=== PATIENT | male | born 1955 | race Caucasian/White ===

== ENCOUNTER → 2021-04-21 02:47 | Outpatient (CLI) | payer BC, SELFPAY ==
[2021-04-21 18:24] LABS: SARS-CoV-2 RNA PCR Positive
== END ==
PROVIDERS: PCP Family Medicine; Visit Provider Internal Medicine Gastroenterology
DX: U07.1 COVID-19 (principal)
CPT/HCPCS: C9803; U0003; U0005

== ENCOUNTER 2024-07-07 09:32 | Outpatient (CLI) | payer MEDICARE, SELFPAY ==
--- OUTSIDE RECORDS SUMMARY | 2024-07-07 10:10 | XMS_ITS | Referral Summary ---
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 Name Role Phone Alfa Quintana MD Primary Care Provider [phone] Encounters Date Type Department Care Team Description 06/15/2024 8:15 AM CDT Office Visit [facility] Medical [facility] Cardiology [address] [place] [address] Case Roldan MD Need for lipid screening (Primary Dx); Cerebral infarction, unspecified mechanism (HCC); History of CVA (cerebrovascular accident); Essential hypertension; Mixed hyperlipidemia 06/05/2024 9:00 AM CDT Ancillary Procedure [facility] Cardiology [address] [place] [address] Cerebral infarction, unspecified mechanism (HCC) from Last 3 Months Allergies Active Allergy Reactions Criticality Noted Date Comments Lisinopril Cough Low 06/15/2024 Medications atorvastatin (LIPITOR) 80 mg tablet 05/31/2024 Active clopidogreL (PLAVIX) 75 mg tablet 05/31/2024 Active valsartan (DIOVAN) 160 mg tablet 06/04/2024 Active aspirin 81 mg enteric coated tablet Take 1 tablet (81 mg total) by mouth daily Active Active Problems Problem Noted Date Diagnosed Date History of CVA (cerebrovascular accident) 2024 Essential hypertension 06/15/2024 Mixed hyperlipidemia 06/15/2024 Social History Tobacco Use Types Packs/Day Years Used Date Smoking Tobacco: Never Tobacco Cessation:Counseling Given: Not Answered Sex and Gender Information Value Date Recorded Sex Assigned at Not on file Legal Sex Male 10:57 AM CDT Gender Identity Not on file Sexual Orientation Not on file Last Filed Vital Signs Vital Sign Reading Time Taken Comments Blood Pressure 122/68 06/15/2024 8:11 AM CDT Pulse 73 06/15/2024 8:11 AM CDT Temperature - - Respiratory Rate - - Oxygen Saturation 99% 06/15/2024 8:11 AM CDT Inhaled Oxygen Concentration - - Weight 95.1 kg (209 lb 11.2 oz) 06/15/2024 8:11 AM CDT Height 175.3 cm (5' 9 ) 06/15/2024 8:11 AM CDT Body Mass Index 30.97 06/15/2024 8:11 AM CDT Plan of Treatment Not on file Procedures Procedure Name Priority Date/Time Associated Diagnosis Comments ELECTROCARDIOGRAM REPORT Routine 2:39 PM CDT Cerebral infarction, unspecified mechanism (HCC) History of CVA (cerebrovascular accident) Essential hypertension POCT LIPID PANEL Routine 06/15/2024 8:51 AM CDT Need for lipid screening from Last 3 Months Results * Electrocardiogram Report (06/15/2024 2:39 PM CDT) Case Roldan MD ECG ORDERABLES Kim l Result * POCT lipid panel (06/15/2024 8:51 AM CDT) Cholesterol, POC 120 mg/dL Comment:GLU = 125 HDL, POC 37 mg/dL Triglycerides, POC 73 mg/dL LDL Cholesterol POC 68 mg/dL Chol/HDL Ratio, POC 1.8 Non-HDL Cholesterol, POC 83 mg/dL Cholesterol Total, POC 120 mg/dL Capillary blood 06/15/2024 8 :51 AM CDT us Case Roldan MD POINT OF CARE TEST O RDERABLES Final Result from Last 3 Months Insurance [employer] MEDICARE GOLD Care Teams Baseboard Heating Installer Relationship Specialty Start Date End Date Alfa Quintana MD [id number] [place] [place] [address] PCP - General Family Medicine 06/04/24
--- OUTSIDE RECORDS SUMMARY | 2024-07-07 10:10 | XMS_ITS | Clinical Summary ---
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 Metal Trim Erector Name Role Phone Alfa Quintana MD Primary Care Provider [phone] Allergies Active Allergy Reactions Criticality Noted Date [...] 2024 Essential hypertension 06/15/2024 Mixed hyperlipidemia 06/15/2024 Encounters Date Type Department Care Team Description 06/15/2024 8:15 AM CDT Office Visit [facility]iology [facility] [address] [place] [phone] Case Roldan MD Need for lipid screening (Primary Dx); Cerebral infarction, unspecified mechanism (HCC); History of CVA (cerebrovascular accident); Essential hypertension; Mixed hyperlipidemia 06/05/2024 9:00 AM CDT Ancillary Procedure [facility] Cardiology [address] [facility] [address] [place] [phone] Cerebral infarction, unspecified mechanism (HCC) from Last 3 Months Surgical History Surgery Date Site/Laterality Comments NASAL SEPTUM SURGERY VASECTOMY 03/25/1989 - 03/24/1990 Medical History Medical History Date Comments Arthritis of knee, degenerative Basal cell carcinoma Cerebral infarction (HCC) Family History Medical History Relation Name Comments mental disorder Father Alzheimer's disease Mother Relation Name Status Comments Father Mother Social History Tobacco Use Types Packs/Day Years Used Date Smoking Tobacco: Never Tobacco Cessation:Counseling Given: Not Answered Sex and Gender Information Value Date Recorded Sex Assigned at Not on file Legal Sex Male 10:57 AM CDT Gender Identity Not on file Sexual Orientation Not on file Obstetrics History Last Filed Vital Signs Vital Sign Reading [...] 06/15/2024 8:11 AM CDT Plan of Treatment Health Maintenance Due Date Last Done Comments Colon Cancer Screening-Colonoscopy 1956 Depression Screening 1956 Fall Risk Assessment 1956 Hepatitis C Screening 1956 Prostate Cancer Screening-PSA 1956 Hepatitis B Screening 1974 Pneumococcal vaccine 65+ (1 of 1 - PCV) 2006 Zoster Vaccine (1 of 2) 2006 Well Visit 65+ 2021 Influenza Vaccine (#1) 2023 DTaP/Tdap/Td Vaccine (2 - Td or Tdap) 05/27/202907/2019 Procedures Procedure Name Priority Date/Time Associated Diagnosis Comments ELECTROCARDIOGRAM REPORT Routine 025 2:39 PM CDT Cerebral infarction, unspecified mechanism (HCC) History of CVA (cerebrovascular accident) Essential hypertension POCT LIPID PANEL Routine 06/15/2024 8:51 AM CDT Need for lipid screening from Last 3 Months Results * Electrocardiogram Report (06/15/2024 2:39 PM CDT) us Erikaeer Nick Roldan MD ECG ORDERABLES Kim l Result [...] Months Insurance [employer] MEDICARE GOLD Care Teams Metal Trim Erector Relationship Specialty Start Date End Date Alfa Quintana MD [address] [place] [address] [place] [address] PCP - General Family Medicine 06/04/24
--- NOTE | 2024-07-23 14:18 | P.SLEEP_ITS ---
Sleep Study Date of Study: 07/07/24 Ordering Provider: Alfa Quintana MD Interpreting Physician: Moniak Lui DO Sleep Study Type: Split Polysomnogram Height: 1.75 m Weight: 92.533 kg Body Mass Index: 30.1 Neck Circumference (inches): 16 [place]: 13 Reason for Sleep Study Daytime hypersomnia Sleep History The patient is a 69-year-old male that had a sleep study ordered by his primary care physician for evaluation of sleep apnea. The patient occasionally awakens from sleep short of breath. He rarely awakens at night with coughing, heartburn or belching. He rarely snores and is rarely loud enough that others complain. He occasionally has trouble sleeping when he has a cold. He occasionally wakes up gasping for air throughout the night. The patient occasionally has breathing problems at night observed by himself or others. He rarely sweats excessively at night. He occasionally has heart palpitations or irregular heartbeats during the night. He occasionally falls asleep during the day but never while driving. He rarely experiences loss of muscle tone when extremely emotional. He occasionally has trouble at school or work due to sleepiness. He denies sleep paralysis. He rarely experiences vivid dreamlike scenes upon awakening or falling asleep. He rarely feels afraid of going to sleep. He occasionally has nightmares. He occasionally remembers his dreams. He occasionally has thoughts racing through his mind. He occasionally feels sad or depressed. He frequently has anxiety. He occasionally has muscular tension. He frequently notices parts of his body jerk. He frequently kicks during the night. He occasionally has crawling and aching feelings in his legs but rarely has leg pain during the night. He rarely grinds his teeth during sleep and rarely awakens with morning jaw pain. He is rarely bothered by pain during the day and rarely awakened by pain during the night. He frequently wakes up feeling stiff in the morning. He frequently wakes up with sore or achy muscles. He frequently wakes up with pain in the neck, spine or other joints. He goes to bed at 10:30 p.m. every night. It takes him 1-2 hours to fall asleep. He wakes up 3-4 times throughout the night to urinate and is able to fall back asleep within 30 minutes. He wakes up at 6:30 a.m. every morning. He typically gets 4 hours of sleep per night. He will stay in bed for 30 minutes after waking up in the morning. He currently lives with his . He will occasionally consume caffeinated beverages within 2 hours of bedtime. He denies engaging in physical exercise before bedtime. He denies reading before falling asleep. He will watch television before falling asleep. He will take naps in afternoon or the evening and they are refreshing. He consumes 1 caffeinated soda per day. He denies tobacco use. He will consume 1 Mildred per month. He denies recreational drug use. [facility] Past Medical History Medical History Degenerative arthritis of knee, bilateral Obesity (BMI 30.0-34.9) Basal cell carcinoma Surgical History Surgical History History of nasal septoplasty History of vasectomy (~1989) History of colonoscopy (~10/18/13) Family History Family History Father Family history of mental disorder Mother Family history of Alzheimer's disease Social History Social History Smoking status: Never smoker Alcohol intake: current Alcohol use details: Monthly Substance use type: does not use Living arrangements: with family Occupation/Education: retired Spiritual care concerns: No Medications Home Medications ?Medication ?Instructions ?Recorded ?Confirmed ?Type atorvastatin 80 mg tablet 80 mg PO DAILY #90 tabs 06/22/24 07/13/24 Rx clopidogrel 75 mg tablet 75 mg PO DAILY #90 tabs 06/22/24 07/13/24 Rx amlodipine 5 mg tablet 5 mg PO DAILY #90 tabs 07/13/24 07/13/24 Rx irbesartan 300 1 tablet PO DAILY #90 tabs 07/13/24 07/13/24 Rx mg-hydrochlorothiazide 12.5 mg tablet omega-3 fatty acids 500 mg capsule 500 mg PO DAILY 07/13/24 07/13/24 History Sleep Procedure A full night split study using the Spunkmobile multi-channel system recorded the standard physiologic parameters including EEG, EOG, submentalis EMG, anterior tibialis EMG, EKG, body position, nasal and oral airflow using nasal pressure sensor and thermistor.? Respiratory parameters of chest and abdominal movements were recorded with Respiratory Inductance Plethysmography belts. Oxygen saturation was recorded by pulse oximetry. Video monitoring was also performed. Sleep stages, periodic limb movements, and EEG arousals were scored in 30 second epochs according to the criteria of the AASM Scoring Manual. The Apnea-Hypopnea Index was calculated using [facility] guidelines for definition of hypopnea with 4% O2 desaturations while scoring respiratory events. Sleep Architecture During the diagnostic portion of the study, the total recording time was 199.4 minutes. The total sleep time was 140.5 minutes. Sleep latency was 17.4 minutes.? REM latency was 149.0 minutes. Sleep Efficiency was 70.4%. The patient had 17 awakenings for an awakening index of 7.3. Wake after sleep onset time was 41.5 minutes. The patient spent 19.5 minutes, 13.9% of total sleep time in Stage N1. The patient spent 99.0 minutes, 70.5% in Stage N2. The patient spent 0.0 minutes, 0.0% in Stage N3. The patient spent 22.0 minutes, 15.7% in Stage REM sleep. At 01:48:32 AM the patient was placed on PAP treatment and was titrated at pressures ranging from 5 cm H20 up to 12/2 cm H20-. During the treatment portion of the study, the total recording time was 284.0 minutes.? The total sleep time was 198.0 minutes. Sleep latency was 41.5 minutes. REM latency was 65.0 minutes. Sleep Efficiency was 69.7%. Wake after Sleep Onset time was 44.0 minutes. The patient spent 55.5 minutes, 28.0% of total sleep time in Stage N1. The patient spent 101.0 minutes, 51.0% in Stage N2. The patient spent 0.0 minutes, 0.0% in Stage N3. The patient spent 41.5 minutes, 21.0% in Stage REM. Respiratory Analysis During the diagnostic portion of the study, the patient had 26 hypopneas, 6 obstructive apneas and 3 central apneas for an overall Apnea Hypopnea Index of 14.9 events per hour. The REM Apnea Hypopnea Index was 51.8. The NREM Apnea Hypopnea Index was 8.6. The patient had a Central Apnea Hypopnea Index of 1.3. There was no evidence of Dinesh-Moses Respirations. During the treatment portion of the study, the patient had 2 hypopneas, 21 obstructive apneas, 5 mixed apneas, and 5 central apneas for an overall Apnea Hypopnea Index of 10.0 events per hour. The REM Apnea Hypopnea Index was 26.0. The NREM Apnea Hypopnea Index was 5.8. The patient had a Central Apnea Hypopnea Index of 1.5. There was no evidence of Dinesh-Moses Respirations. The patient was started on CPAP 5 cm H2O and titrated to CPAP 11 cm H2O with EPR of 2. The patient was able to fall asleep starting on CPAP 6 cm H2O. The patient was able to achieve REM sleep starting on CPAP 7 cm H2O. The patient was able to achieve a residual AHI less than 5 with both NREM and REM sleep in the supine position on the final pressure setting. On CPAP 12 cm H2O with EPR of 2, the patient spent 76 minutes in NREM and 20.5 minutes in REM with 1 obstructive apnea, resulting in an AHI of 0.6. The patient had a sleep efficiency of 78.1% on this pressure setting. Arousals During the diagnostic portion of the study, there were a total of 90 arousals for an arousal index of 38.4.? There were 30 respiratory arousals for an index of 12.8. There were 0 periodic limb movement arousals for an index of 0.? There were 2 isolated limb movement arousals for an index of 0.9. There were 58 spontaneous arousals for an index of 24.8. During the treatment portion of the study, there were a total of 109 arousals for an index of 33.0.? There were 30 respiratory arousals for an index of 9.1. There were 14 periodic limb movement arousals for an index of 4.2.? There were 11 isolated limb movement arousals for an index of 3.3. There were 55 spontaneous arousals for an index of 16.7. Periodic Limb Movements During the diagnostic portion of the study, the patient had 3 isolated limb movements with an index of 1.3. The patient had 0 periodic limb movements with an index of 0. The patient had a total of 3 limb movements with a total limb movement index of 1.3. During the treatment portion of the study, the patient had 17 isolated limb movements with an index of 5.2. The patient had 27 periodic limb movements with an index of 8.2. The patient had a total of 44 limb movements with a total limb movement index of 13.3. Oximetry Data During the diagnostic portion of the study, the patient had an average oxygen saturation of 95.8% in wake with a minimum oxygen saturation of 93% and a maximum oxygen saturation of 98%. The patient had an average oxygen saturation of 94.3% in sleep with a minimum oxygen saturation of 81.0% and a maximum oxygen saturation of 97.0%. The patient had 43 oxygen desaturations resulting in an Oxygen Desaturation Index of 18.4. The patient spent 1.8 minutes, 0.9% of total sleep time with an oxygen saturation less than 88%. During the treatment portion of the study, the patient had an average oxygen saturation of 95.9% in wake with a minimum oxygen saturation of 81.0% and a maximum oxygen saturation of 99.0%. The patient had an average oxygen saturation of 95.2% in sleep with a minimum oxygen saturation of 81.0% and a maximum oxygen saturation of 98.0%. The patient had 29 oxygen desaturations resulting in an Oxygen Desaturation Index of 8.8. The patient spent 2.3 minutes, 0.8% of total sleep time with an oxygen saturation less than 88%. Snoring Profile Minimal snoring was present during the baseline portion of the study. The snoring resolved once the patient was started on CPAP therapy. Cardiac Profile The EKG lead showed normal sinus rhythm with occasional PVCs. During the diagnostic portion of the study, the average pulse rate was 63.0 bpm.? The minimum pulse rate was 51.0 bpm. The maximum pulse rate was 92.0 bpm. During the treatment portion of the study, the average pulse rate was 57.9 bpm.? The minimum pulse rate was 48.0 bpm. The maximum pulse rate was 94.0 bpm. EEG Profile No signs of seizure activity seen. Assessment and Plan Assessment and Plan (1) MARIYA (obstructive sleep apnea): Code(s): G47.33 - Obstructive sleep apnea (adult) (pediatric) Status: Acute Assessment and Plan: In the baseline portion of the study, the patient had an overall AHI of 14.9 with desaturation down to 81%. This is consistent with mild sleep apnea. Due to the patient's hypertension, he qualifies for treatment. The patient was started on CPAP 5 cm H2O and titrated to CPAP 11 cm H2O with EPR of 2. The patient's sleep apnea resolved on the final pressure setting. I recommend that the patient be prescribed CPAP 12 cm H2O with EPR of 2, size medium Resmed AirTouch F20 full face mask, CPAP filters/tubing and heated humidity. This should be used with all episodes of sleep.? Compliance should be reviewed within 31-90 days of starting therapy for usage greater than 4 hours per night greater than 70% of the nights. The patient should be asked about symptoms such as?excessive daytime sleepiness, quality of sleep, decreased nocturia, increased?mental functioning such as memory, mood, and concentration. The patient's sleep history is suggestive of Restless Leg Syndrome. I recommend that the patient have a serum ferritin drawn for evaluation of iron deficiency anemia. If the patient has a serum ferritin less than 75 ng/mL, I recommend starting a daily iron supplement and a Vitamin C supplement for better absorption. If the serum ferritin is greater than 75 ng/mL, I recommend starting a dopamine agonist and titrating the dose until symptoms resolve. There are nonpharmacological methods to treat limb movements including daily exercise, stretching calf muscles before bed, avoiding excessive amounts of caffeine and alcohol, vitamin B supplementation, magnesium lotion massaged into legs before bed, and use of a weighted blanket. Data The data obtained during this sleep study is adequate for interpretation. Certification This sleep study has been reviewed by a board certified sleep medicine physician.
[2024-07-23 14:21] VITALS: BMI 30.1
== END 2024-07-08 07:18 | disposition home or self-care (01) ==
LOC: ANHCSM 09:35
PROVIDERS: PCP Family Medicine; Visit Provider Family Medicine
DX: R03.0 Elevated blood-pressure reading, without diagnosis of hypertension (principal); I63.9 Cerebral infarction, unspecified; I67.89 Other cerebrovascular disease; R27.0 Ataxia, unspecified; G47.30 Sleep apnea, unspecified; G47.33 Obstructive sleep apnea (adult) (pediatric)
CPT/HCPCS: 95811